=== PATIENT | male | born 1970 | race Caucasian/White ===

== ENCOUNTER 2017-07-29 07:57 | Emergency (ER) | payer MEDICAID | END 2017-07-29 08:30 | disposition home or self-care (01) | LOC: D.ER 07:57 | DX: J02.9 Acute pharyngitis, unspecified (principal); B02.9 Zoster without complications; G40.909 Epilepsy, unspecified, not intractable, without status epilepticus; Z86.73 Personal history of transient ischemic attack (TIA), and cerebral infarction without residual deficits ==